=== PATIENT | female | born 1975 | race Caucasian/White ===

== ENCOUNTER 2017-04-04 09:31 | Emergency (ER) | payer SELFPAY ==
[2017-04-04] MEDS ORDERED: Albuterol/Ipratropium 3.0-0.5 MG/3 ML Neb Soln NEB ONE (09:58)
--- NOTE | 2017-04-04 10:07 | EDM.PDOC ---
ED HPI GENERAL MEDICAL PROBLEM - General Chief Complaint: Respiratory Problem Stated Complaint: COLD Time Seen by Provider: 04/04/17 09:52 - History of Present Illness INITIAL COMMENTS - FREE TEXT/NARRATIVE: HISTORY AND PHYSICAL: History of present illness: The patient is a 41-year-old female who presents with complaints of cough productive of yellow phlegm sinus congestion and feeling fatigued and run down since the end of December. According to the patient she was seen at a walk-in clinic at the end of December and was treated with 10 days of antibiotics, the name of which she does not know, and a steroid but no inhaler therapy. The patient says her has had upper respiratory tract infections and is seen his primary but she does not have a provider. Patient does smoke for many years, greater than 20 years, but she has no diagnosis of any pulmonary problems. She believes that she does have a touch of COPD but she has not been diagnosed with that. The patient states that with the therapy given to her in December she did improve and then last week she started feeling more run down again and she has not been sleeping much due to her 's illness. She's been eating and drinking normally and has had no chest pain or shortness of breath but she started having sinus pressure and congestion and feels like it moved to her chest. She is coughing up yellow phlegm again but there is no blood. She has no abdominal complaints and denies . She has only had a low-grade temp 1 day of 99. She is concerned that her symptoms have recurred. Review of systems: As per history of present illness and below otherwise all systems reviewed and negative. Past medical history: As per history of present illness and as reviewed below otherwise noncontributory. Surgical history: As per history of present illness and as reviewed below otherwise noncontributory. Social history: No reported history of drug or alcohol abuse. Family history: As per history of present illness and as reviewed below otherwise noncontributory. Physical exam: General: Well-developed well-nourished female was slight nasal quality to voice but is not breathless on my evaluation and vital signs have been reviewed by me HEENT: Atraumatic, normocephalic, pupils reactive, negative for conjunctival pallor or scleral icterus, mucous membranes moist, throat clear, neck supple, nontender, trachea midline. No cervical adenopathy or nuchal rigidity, there is some redness to the nasal mucosa but no boggy turbinates and no gross sinus tenderness on palpation Lungs: Clear to auscultation with a fine expiratory wheeze throughout all lung hinojosa but no worker breathing,, breath sounds equal bilaterally, chest nontender. Heart: S1S2, regular rate and rhythm no overt murmurs Abdomen: Soft, nondistended, nontender. NABS. Skin: No diaphoresis normal turgor no rashes or lesions are seen overtly Genitourinary: Deferred. Rectal: Deferred. Extremities: Atraumatic, negative for cords or calf pain. Neurovascular unremarkable. Neuro: Awake, alert, oriented. Cranial nerves II through XII unremarkable. Cerebellum unremarkable. Motor and sensory unremarkable throughout. Exam nonfocal. Diagnostics: Chest x-ray Therapeutics: DuoNeb, spacer teaching and spacer given to the patient On reevaluation after the DuoNeb the patient no longer has any wheezing and does feel like she is moving air better. I discussed with the patient length the treatment of bronchitis but will also give her a Z-Real and she is a smoker and may have some susceptibility to community-acquired processes from her . I stressed the need for follow-up with provider in the clinic and hydration and rest. Impression: Recurrent bronchitis with history of tobacco use Definitive disposition and diagnosis as appropriate pending reevaluation and review of above. 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 Other OB/BYN History: Heavy menses Neurological History: Reports: Migraines - Infectious Disease History Infectious Disease History: Reports: Chicken Pox - Past Surgical History Female Surgical History: Reports: Hysterectomy Other Female Surgeries/Procedures: Laparoscopy for endometriosis Social & Family History - Family History Family Medical History: Noncontributory Cardiac: Reports: VA, Pacemaker Neurological: Reports: CVA - Tobacco Use Smoking Status *Q: Current Every Day Smoker Years of Tobacco use: 25 Packs/Tins Daily: 1 Second Hand Smoke Exposure: Yes - Caffeine Use Caffeine Use: Reports: Coffee, Soda, Tea - Recreational Drug Use Recreational Drug Use: No Drug Use in Last 12 Months: No ED ROS GENERAL - Review of Systems Review Of Systems: ROS reveals no pertinent complaints other than HPI. ED EXAM, GENERAL - Physical Exam Exam: See Below (See dictation) Course - Vital Signs Last Recorded V/S: Last Vital Signs Temp 37.0 C 04/04/17 09:39 Pulse 94 04/04/17 09:39 Resp 18 04/04/17 09:39 BP 131/72 04/04/17 09:39 Pulse Ox 98 04/04/17 09:39 - Orders/Labs/Meds Orders: Active Orders 24 hr Category Date Time Status Communication Order [RC] STAT Care 04/04/17 09:59 Active RT Aerosol Therapy [RC] ASDIRECTED Care 04/04/17 09:59 Active Chest 2V [CR] Stat Exams 04/04/17 09:58 Taken Meds: Medications Discontinued Medications Generic Name Dose Route Start Last Admin Trade Name Freq PRN Reason Stop Dose Admin Albuterol/Ipratropium 3 ml 04/04/17 09:58 04/04/17 10:07 Duoneb 3.0-0.5 Mg/3 Ml NEB 04/04/17 09:59 3 ml ONETIME ONE Administration Departure - Departure Time of Disposition: 10:54 Disposition: Home, Self-Care 01 Condition: Good Clinical Impression: Acute bronchitis Qualifiers: Bronchitis organism: unspecified organism Qualified Code(s): J20.9 - Acute bronchitis, unspecified - Discharge Information Referrals: PCP,None [Primary Care Provider] - Forms: ED Department Discharge Additional Instructions: The following information is given to patients seen in the emergency department who are being discharged to home. This information is to outline your options for follow-up care. We provide all patients seen in our emergency department with a follow-up referral. The need for follow-up, as well as the timing and circumstances, are variable depending upon the specifics of your emergency department visit. If you don't have a primary care physician on staff, we will provide you with a referral. We always advise you to contact your personal physician following an emergency department visit to inform them of the circumstance of the visit and for follow-up with them and/or the need for any referrals to a consulting specialist. The emergency department will also refer you to a specialist when appropriate. This referral assures that you have the opportunity for followup care with a specialist. All of these measure are taken in an effort to provide you with optimal care, which includes your followup. Under all circumstances we always encourage you to contact your private physician who remains a resource for coordinating your care. When calling for followup care, please make the office aware that this follow-up is from your recent emergency room visit. If for any reason you are refused follow-up, please contact the [facility] emergency department at and ask to speak to the emergency department charge nurse. [facility]- [facility] Family [address] [address] Push hydration and rest as much as possible. Please connect with one of our providers in the clinic or another provider as you choose and the next few days for reevaluation further care. Please use all medications as prescribed and directed and return to ER as needed and as discussed. Please try to reduce and/ or eliminate smoking - My Orders Last 24 Hours: My Active Orders 04/04/17 09:58 Chest 2V [CR] Stat 04/04/17 09:59 Communication Order [RC] STAT RT Aerosol Therapy [RC] ASDIRECTED - Assessment/Plan Last 24 Hours: My Active Orders 04/04/17 09:58 Chest 2V [CR] Stat 04/04/17 09:59 Communication Order [RC] STAT RT Aerosol Therapy [RC] ASDIRECTED
[2017-04-04 11:08] VITALS: BP 134/76
--- NOTE | 2017-04-06 16:25 | CR ---
EXAM DATE: 04/04/17 PATIENT'S AGE: 41 Patient: MARGI ALEXANDER Facility: [place], [place] Site . Site : 1975 Study: XRay Chest [id number]/3/2017 10:32:18 AM Ordering Physician: Juan Miguel Muse Final Report: INDICATION: pain, sob TECHNIQUE: PA and lateral chest films are submitted. COMPARISON: None Findings : Heart size and pulmonary vasculature within normal limits. Mild hyperinflation. Lung hinojosa and costophrenic angles are clear. IMPRESSION: No active disease. Dictated by Ryan Hughes MD @ 04/04/2017 10:48:37 AM Dictated by: Ryan Hughes MD @ 04/04/2017 10:48:44 (Electronic Signature) Report Signed by Proxy. [facility]IMINALLY INSANEWillie
== END 2017-04-04 11:05 | disposition home or self-care (01) ==
LOC: MW.ED 09:31
DX: J20.9 Acute bronchitis, unspecified (principal); F17.210 Nicotine dependence, cigarettes, uncomplicated; Z90.710 Acquired absence of both cervix and uterus
CPT/HCPCS: 71020; 71020-26; 94664; 99283; 99284-25

== ENCOUNTER 2018-04-13 09:01 | Day surgery (SDC) | payer SELFPAY ==
[~2018-04-13 09:01] MED LIST: Acetaminophen/HYDROcodone 325-5 MG Tab PO PRN; Bupivacaine 0.25%/EPINEPHrine 1:200,000 10 ML SDV INJECT ONE; Bupivacaine 0.25%/EPINEPHrine 1:200,000 10 ML SDV ONE; Bupivacaine 25%/EPINEPHrine/PF 30 ML ONE; EPINEPHrine 1 MG/ML SDV ONE; Gentamicin 40 MG/ML 2 ML Vial ONE; Lactated Ringers 1,000 ML IV SCH; ceFAZolin 1 GM Vial ONE; ceFAZolin 2 GM in Premix Bag 1 BAG IV ONE
--- NOTE | 2018-04-13 10:03 | PCM.PREANE ---
Preanesthetic Assessment - Anesthesia/Transfusion/Family Hx Anesthesia History: Prior Anesthesia Without Reaction Other Type of Anesthesia Reaction Comment: Denies any problem in past, brother ' slow to awaken' Family History of Anesthesia Reaction: No Transfusion History: No Prior Transfusion(s) - Review of Systems General: No Symptoms Pulmonary: No Symptoms Cardiovascular: No Symptoms Gastrointestinal: No Symptoms Neurological: No Symptoms Other: Reports: None - Physical Assessment NPO Status Date: 04/12/18 Height: 1.68 m Weight: 58.06 kg ASA Class: 2 Mental Status: Alert & Oriented x3 Airway Class: Mallampati = 1 Dentition: Reports: Normal Dentition ROM/Head Extension: Full Lungs: Clear to Auscultation, Normal Respiratory Effort Cardiovascular: Regular Rate, Regular Rhythm - Allergies Allergies/Adverse Reactions: Allergies Allergy/AdvReac Type Severity Reaction Status Date / Time No Known Allergies Allergy Verified 04/08/18 10:47 - Blood Blood Available: No - Anesthesia Plan Pre-Op Medication Ordered: None - Acknowledgements Anesthesia Type Planned: General Anesthesia Pt an Appropriate Candidate for the Planned Anesthesia: Yes Alternatives and Risks of Anesthesia Discussed w Pt/Guardian: Yes Pt/Guardian Understands and Agrees with Anesthesia Plan: Yes PreAnesthesia Questionnaire HEENT History: Reports: Other (See Below) Other HEENT History: wears glasses Respiratory History: Reports: Other (See Below) Other Respiratory History: 1 PPD smoker for 27 years Gastrointestinal History: Reports: None 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 Other OB/BYN History: Heavy menses Neurological History: Reports: Migraines - Infectious Disease History Infectious Disease History: Reports: Chicken Pox - Past Surgical History GI Surgical History: Reports: EGD Female Surgical History: Reports: Hysterectomy, Other (See Below) Other Female Surgeries/Procedures: Laparoscopy with ablation of Endometrioisis - SUBSTANCE USE Smoking Status *Q: Current Every Day Smoker Tobacco Use Within Last Twelve Months: Cigarettes Recreational Drug Use History: No - HOME MEDS Home Medications: Home Meds Loratadine/Pseudoephedrine [Claritin-D 24 Hour Tablet] 1 tab PO DAILY 04/08/18 [ History] Multivitamin [Multiple Vitamins] 1 tab PO DAILY 04/08/18 [History] - CURRENT (IN HOUSE) MEDS Current Meds: Current Medications Hydrocodone Bitart/Acetaminophen (Mckean 325-5 Mg) 1 tab PO Q4H PRN PRN Reason: Pain Lactated Ringer's (Ringers, Lactated) 1,000 mls @ 125 mls/hr IV ASDIRECTED DELFINA Discontinued Medications Bupivacaine HCl/Epinephrine Bitart (Marcaine 0.25%/Epinephrine 1:200,000) 10 ml INJECT ONETIME ONE Stop: 04/13/18 08:01 Bupivacaine HCl/Epinephrine Bitart (Marcaine 0.25%/Epinephrine 1:200,000) Confirm Administered Dose 10 ml .ROUTE .STK-MED ONE Stop: 04/13/18 07:31 Cefazolin Sodium (Ancef) Confirm Administered Dose 1 gm .ROUTE .STK-MED ONE Stop: 04/13/18 07:44 Epinephrine HCl (Adrenalin) Confirm Administered Dose 1 mg .ROUTE .STK-MED ONE Stop: 04/13/18 07:44 Gentamicin Sulfate (Gentamicin) Confirm Administered Dose 80 mg .ROUTE .STK-MED ONE Stop: 04/13/18 07:44 Cefazolin Sodium/Dextrose 2 gm (/ Premix) 50 mls @ 100 mls/hr IV ONETIME ONE Stop: 04/13/18 08:29 Bupivacaine HCl/Epinephrine Bitart (Sensorc Mpf 0.25%-Epi 1:[id number]) Confirm Administered Dose 30 mls @ as directed .ROUTE .STK-MED ONE Stop: 04/13/18 07:45
[2018-04-13] MEDS ORDERED: Propofol 200 MG/20 ML SDV ONE (11:31)
[2018-04-13] MEDS ORDERED: Lidocaine 2% 5 ML SDV ONE (11:31)
[2018-04-13] MEDS ORDERED: HYDROmorphone 2 MG/ML SDV ONE (11:32)
[2018-04-13] MEDS ORDERED: Midazolam 1 MG/ML 2 ML SDV ONE (11:32)
[2018-04-13] MEDS ORDERED: fentaNYL 250 MCG/5 ML SDV ONE (11:32)
[2018-04-13] MEDS ORDERED: Ondansetron 4 MG/2 ML SDV ONE (11:37)
[2018-04-13] MEDS ORDERED: Dexamethasone 4 MG/ML 5 ML MDV ONE (11:37)
[2018-04-13] MEDS ORDERED: diphenhydrAMINE 50 MG/ML SDV ONE (11:37)
[2018-04-13] MEDS ORDERED: Scopolamine 1.5 MG Transdermal Patch ONE (11:39)
[2018-04-13] MEDS ORDERED: Rocuronium 10 MG/ML 10 ML Syringe ONE (12:18)
[2018-04-13] MEDS: fentaNYL 100 MCG/2 ML SDV IVPUSH PRN ×3 (14:07→14:17)
--- NOTE | 2018-04-13 14:26 | PCM.POSTAN ---
POST ANESTHESIA ASSESSMENT - MENTAL STATUS Mental Status: Alert, Oriented - RESPIRATORY Respiratory Status: Respiratory Rate WNL, Airway Patent, O2 Saturation Stable - CARDIOVASCULAR CV Status: Pulse Rate WNL, Blood Pressure Stable - GASTROINTESTINAL GI Status: No Symptoms - PAIN Pain Score: 5 ("tolerable" just pressure on chest) - POST OP HYDRATION Hydration Status: Adequate & Stable - OBSERVATIONS Free Text/Narrative:: Pt stable for discharge to phase II recovery. Pain well controlled and no nausea.
--- NOTE | 2018-04-13 14:54 | PCM.OPNOTE ---
- General Post-Op/Procedure Note Date of Surgery/Procedure: 04/13/18 Operative Procedure(s): bilateral silicone submuscular breast augmentation Pre Op Diagnosis: cosmetic Post-Op Diagnosis: Same Anesthesia Technique: Local, MAC Primary Surgeon: [facility] Sales Consultant: Karen Swenson Complications: None Condition: Good Free Text/Narrative:: Intake & Output 04/12/18 04/13/18 04/13/18 23:59 07:59 15:59 Intake Total 2500 Balance 2500
[2018-04-13 15:11] VITALS: BP 123/71
--- NOTE | 2018-04-13 15:26 | PCM48HPAN ---
Post Anesthesia Note - EVALUATION WITHIN 48HRS OF ANESTHETIC Vital Signs in Normal Range: Yes Patient Participated in Evaluation: Yes Respiratory Function Stable: Yes Airway Patent: Yes Cardiovascular Function Stable: Yes Hydration Status Stable: Yes Pain Control Satisfactory: Yes Nausea and Vomiting Control Satisfactory: Yes Mental Status Recovered: Yes Resp Rate: 15 - COMMENTS/OBSERVATIONS Free Text/Narrative:: no anesthesia problems
--- NOTE | 2018-04-14 21:22 | OR ---
SURGEON: JAMES FRANKS MD DATE OF PROCEDURE: 04/13/2018 PREOPERATIVE DIAGNOSIS: Cosmetic. POSTOPERATIVE DIAGNOSIS: Cosmetic. PROCEDURE: Bilateral silicone submuscular 450 mL breast augmentation. RESOURCE ANALYST: ANISA Clemens. INDICATIONS: Ms. Mota is a 42-year-old female, seen today in evaluation for bilateral silicone breast augmentation. Risks and benefits were discussed with her and she was in agreement to proceed. 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 High-profile implants will be used to accommodate this. She will still have the same underlying deformity, but we will try to mask this some. It makes it somewhat difficult because she has very small breast and we will put in the maximum amount of size possible, but it will not seem as large on her, given this deformity. Risks and benefits, and thorough discussion of this were discussed with her and she would still like to proceed. All questions were answered today. PROCEDURE IN DETAIL: After informed consent was obtained and placed on the chart, the patient was brought to the operating theater and laid in the supine position. After adequate general anesthesia was obtained, the area was prepped and draped and a time-out was completed to confirm side and site. After confirming side and site, 0.25% Marcaine with epinephrine was injected in a field block. After adequate anesthesia, in the inframammary fold, 5 cm incision was made and dissection was carried through the skin and subcutaneous tissues until breach to the lateral pectoralis muscle. Dissection was carried submuscularly and the inferior border of the muscle was released using Bovie electrocautery. Meticulous hemostasis was obtained, and the pockets were packed with epinephrine-soaked laps. Attention was paid to the similar dissection on the left side and after adequate dissection again, epinephrine-soaked laps were placed. Attention was then paid to the right breast again and the flaps were removed and 2-0 PDS sutures were used in a [id number] fashion to anchor the inframammary fold and once adequately anchored, using a no-touch technique, the Style 2450 Natrelle silicone-filled breast implants were placed in the pocket using no-touch technique, irrigating with triple antibiotic solution. The symmetry of procedure was completed on the left side. The patient was sat up and good symmetry was appreciated. The skin was then closed using a deep 3-0 Monocryl Stratafix suture for the fascia, a 3-0 Monocryl continuous Stratafix suture for the dermis and then a running 4-0 Stratafix subcutaneous for the skin. The wounds were dressed with Steri-Strips. The patient was placed in a compression bra. The patient tolerated this procedure well. All counts needles were correct at the end of the case. IMPLANT INFORMATION: Implant style 2450 mL Natrelle silicone-filled breast implant, serial number on the left is #[id number] and serial number on the right is #[id number]. DANA / KAELA /[id number]
== END 2018-04-13 15:30 | disposition home or self-care (01) ==
LOC: MW.SDS 09:01
PROVIDERS: ATTEND Plastic Surgery
DX: Z41.1 Encounter for cosmetic surgery (principal); F17.210 Nicotine dependence, cigarettes, uncomplicated
CPT/HCPCS: 19325; A9270; C1789; J0171; J0690; J1100; J1170; J1200; J1580; J2250; J2405; J2704; J3010; J7120; J3490